=== PATIENT | male | born 1985 | race African-American/Black ===

== ENCOUNTER 2017-07-27 09:50 | Emergency (ER) | payer SELFPAY ==
[2017-07-27 09:56] VITALS: BP 120/69
[2017-07-27] MEDS ORDERED: MUPIROCIN 2% OINTMENT 22 GM TP ONE (10:26)
[2017-07-27] MEDS ORDERED: SULFAMETHOXAZOLE/TRIMETHOPRIM 800-160 MG TABLET PO ONE (10:26)
[2017-07-27] MEDS ORDERED: CEPHALEXIN 500 MG CAPSULE PO ONE (10:26)
--- NOTE | 2017-07-27 10:29 | ER Document Report ---
ED Skin Rash/Insect Bite/Abscs - General Chief Complaint: Boil Stated Complaint: LEG PAIN Time Seen by Provider: 07/27/17 10:18 Mode of Arrival: Ambulatory Information source: Patient Notes: 32-year-old male presents to ED for boil to his right thigh and a small ball to his left thigh. He states that he has been using minimal oral and which Azo and it is not gotten any better. He states is very painful. Is alert and oriented speaks in full sentences walks with a steady even gait. TRAVEL OUTSIDE OF THE [place] IN LAST 30 DAYS: No - HPI Patient complains to provider of: Tender/swollen area Onset: Last week Onset/Duration: Gradual Quality of pain: Pressure, Sharp Severity: Moderate Pain Level: 2 Skin Character: Abscess Identify cause: No Exacerbated by: Denies Relieved by: Denies Similar symptoms previously: Yes Recently seen / treated by doctor: No - Related Data Allergies/Adverse Reactions: No Known Allergies Allergy (Unverified 07/27/17 09:53) Past Medical History - General Information source: Patient - Social History Smoking Status: Never Smoker Cigarette use (# per day): No Chew tobacco use (# tins/day): No Smoking Education Provided: No Frequency of alcohol use: None Drug Abuse: None Lives with: Family Family History: Reviewed & Not Pertinent Patient has suicidal ideation: No Patient has homicidal ideation: No - Past Medical History Cardiac Medical History: Reports: None Pulmonary Medical History: Reports: None EENT Medical History: Reports: None Neurological Medical History: Reports: None Endocrine Medical History: Reports: None Renal/ Medical History: Reports: None Malignancy Medical History: Reports None GI Medical History: Reports: None Musculoskeltal Medical History: Reports None Skin Medical History: Reports Hx Cellulitis Psychiatric Medical History: Reports: None Traumatic Medical History: Reports: None Infectious Medical History: Reports: None Surgical Hx: Negative Past Surgical History: Reports: None Physical Exam - Vital signs Vitals: Temp Pulse Resp BP Pulse Ox 97.6 F 84 14 120/69 98 07/27/17 09:55 07/27/17 09:55 07/27/17 09:55 07/27/17 09:55 07/27/17 09:55 Interpretation: Normal - General General appearance: Appears well, Alert - HEENT Head: Normocephalic, Atraumatic Eyes: Normal Pupils: PERRL - Respiratory Respiratory status: No respiratory distress Chest status: Nontender Breath sounds: Normal Chest palpation: Normal - Cardiovascular Rhythm: Regular Heart sounds: Normal auscultation Murmur: No - Abdominal Inspection: Normal Distension: No distension Bowel sounds: Normal Tenderness: Nontender Organomegaly: No organomegaly - Back Back: Normal, Nontender - Extremities General upper extremity: Normal inspection, Nontender, Normal color, Normal ROM , Normal temperature General lower extremity: Normal ROM, Normal temperature, Normal weight bearing. No: Derrick's sign Thigh: Tender - Large abscess to right side smaller maculopapular to left thigh. - Neurological Neuro grossly intact: Yes Cognition: Normal Orientation: AAOx4 [place] Coma Scale Eye Opening: Spontaneous Chang Coma Scale Verbal: Oriented Chang Coma Scale Motor: Obeys Commands [place] Coma Scale Total: 15 Speech: Normal Motor strength normal: LUE, RUE, LLE, RLE Sensory: Normal - Psychological Associated symptoms: Normal affect, Normal mood - Skin Skin Temperature: Warm Skin Moisture: Dry Skin Color: Normal Skin irregularity: Abscess Location of irregularity: Extremities - Right thigh Course - Re-evaluation Re-evalutation: 07/27/17 21:08 Patient tolerated his I&D of his abscess to the thigh well. While I was doing the abscess he requested a check for diabetes be done while he was here. An Accu-Chek was completed and his Accu-Chek was 109. Patient states both his parents are diabetic and he was concerned. - Vital Signs Vital signs: Temp Pulse Resp BP Pulse Ox 97.6 F 84 14 120/69 98 07/27/17 09:55 07/27/17 09:55 07/27/17 09:55 07/27/17 09:55 07/27/17 09:55 Procedures - Incision and Drainage Right Thigh Time completed: 11:07 Type: Simple Anesthetic type: 1% Lidocaine mL's of anesthetic: 4 Blade size: 11 I&D procedure: Betadine prep applied, Shurclens applied, Sterile dressing applied Incision Method: Incision made by scalpel Amount/type of drainage: minimal purulent and bloody drainage Discharge - Discharge Clinical Impression: Abscess of right thigh Condition: Stable Disposition: HOME, SELF-CARE Instructions: Family Physicians / Practices Additional Instructions: ABSCESS: You have an abscess (boil). This a pus-forming infection, usually due to staph. Some boils may be left to drain on their own, but most require lancing. From the time the tender lump first appears, it may be three or four days before the abscess is ready to afshan. Local heat and rest help at this stage of treatment. An antibiotic may prevent spread of the infection. Once the abscess is opened, packing may be placed into it. This is done so pus is not sealed inside by premature closure of the cavity. The packing will be removed at your follow-up visit or you may be advised to remove it yourself at home. Sometimes this packing must be replaced a few times during healing. The wound will heal with surprisingly little scar. Depending on the size and location of an abscess, healing can take one to four weeks. You may shower and wash the area around the incision site two or three times a day. Antibiotics may be prescribed, but are usually not necessary after an abscess has been drained. If you develop fever, chills, worsening pain, or increasing swelling in the area, call the doctor or return immediately. POST INCISION AND DRAINAGE: You have had an incision made to allow drainage of an abscess. The incision must remain open so that pus and debris can drain from the wound. If the abscess cavity is large, packing is placed. This keeps the tissues from collapsing and trapping pus inside, while the body shrinks the cavity. The packing may need to be replaced every day or two. The physician will instruct you on the packing. Keep a bulky dressing over the area. Replace it if it becomes saturated with blood or pus. Do not disturb the packing (if present). You may shower and cleanse the area with gentle soap and warm water two or three times a day. Local warmth may be soothing, and may promote faster healing. Return if you develop high fever or chills, or if you note spreading redness, increasing swelling, or increasing tenderness. CEPHALEXIN: The antibiotic you've been prescribed is a member of the cephalosporin class. This type of antibiotic covers a wide variety of infections, including those of the skin, lungs, and urinary tract. It's useful for staph infections. This antibiotic is slightly similar to the penicillin family. In rare cases , a person who is allergic to penicillin will also be allergic to this medication. If you have had a severe allergic reaction to penicillin, and have not taken this antibiotic since that time, notify your doctor. Antibiotics which cover many germs ("broad spectrum" antibiotics) are more likely to cause diarrhea or "yeast" infections. Women prone to vaginal yeast problems may suffer an attack after taking this antibiotic. In infants, oral thrush (white spots "stuck" on the cheek) or yeast diaper rash may result. See your doctor if these problems occur. Call at once if you develop itching, hives , shortness of breath, or lightheadedness. Bactroban Ointment Bactroban is very effective against the germs that cause infection within the skin. It's useful for impetigo and other superficial infections. Deeper infections require antibiotics by mouth or by shot. Apply the medicine three times a day for one week, or longer if your doctor has advised it. Stop the medicine and call your doctor if you develop large blisters, severe itching, increasing pain, swelling, fever, or spreading redness. TRIMETHOPRIM-SULFA: You have been given a prescription for trimethoprim-sulfa (TMS, Septra, Bactrim). This is a combination antibiotic of the sulfa class, often used for urinary tract infections, middle ear infections, bronchitis, shigella intestinal infection, and Pneumocystis pneumonia. TMS is usually well-tolerated. Occasional side effects include nausea and decreased appetite. Septra is not recommended for infants less than two months of age. Do not take this medication if you have experienced severe side effects or allergy to sulfa medicine. You should stop this medicine at once and contact your physician if you develop any rash, joint pain, shortness of breath, bruising, or jaundice ( yellow color in the skin), or if you develop any other new or unusual symptoms. Epsom Salt Soaks Soak the wound area in a container of warm epsom salt water. If you can't get the wound area into a bucket or mason, use a folded towel soaked in the epsom salt solution and apply to the area. Use clean hot tap water (about the temperature of a very warm bath), mixing in about one (1) teaspoon for every pint of water. Two gallon --> 16 teaspoons Epsom Salts One gallon --> 8 teaspoons Epsom Salts Two quarts --> 4 teaspoons Epsom Salts One quart --> 2 teaspoons Epsom Salts Soak the wound for about 20 minutes while gently moving it around in the water. Repeat this four (4) times a day. FOLLOW-UP CARE: Most simple abscesses will not require a follow up visit. If you had packing placed in the abscess, remove it as instructed by the physician. If you have been referred to a physician for follow-up care, call the physicians office for an appointment as you were instructed or within the next two days. If you experience worsening or a significant change in your symptoms, return to the Emergency Department at any time for re-evaluation. Prescriptions: Cephalexin Monohydrate [Keflex 500 mg Capsule] 500 mg PO QID #20 capsule Sulfamethoxazole/Trimethoprim [Septra-Ds 800-160 mg Tablet] 1 tab PO BID #20 tablet Forms: Return to Work
== END 2017-07-27 11:33 | disposition home or self-care (01) ==
LOC: ER 09:50
DX: L02.415 Cutaneous abscess of right lower limb (principal); L02.416 Cutaneous abscess of left lower limb; Z83.3 Family history of diabetes mellitus
CPT/HCPCS: 99283; 87070; 87205; 82962; 87077; 87186; 10060; A6266; J3490

== ENCOUNTER 2017-07-29 08:11 | Emergency (ER) | payer SELFPAY ==
--- NOTE | 2017-07-29 09:38 | ER Document Report ---
ED Wound - General Chief Complaint: Wound Recheck Stated Complaint: POSSIBLE ABSCESS Time Seen by Provider: 07/29/17 08:27 Notes: Patient is a 32-year-old male who presents emergency department for a wound check after evaluation on Thursday. Patient states he had an abscess on his right thigh does I&D here. Denies any active drainage or tenderness. Admits to a couple of other inflamed areas on bilateral thighs. Denies any fevers or chills. Has been compliant with home antibiotics. Patient also admits to intermittent tingling in both hands and his toes without associated dizziness, vision changes. He states that it does feel positional and resolves on its own at rest.. He states this comes and goes over the past couple months. Patient requesting to follow-up with a primary care provider regarding that complaint of this visit.He denies any trauma, falls or fever. TRAVEL OUTSIDE OF THE [place] IN LAST 30 DAYS: No - Related Data Allergies/Adverse Reactions: No Known Allergies Allergy (Verified 07/29/17 08:59) Past Medical History - Social History Smoking Status: Unknown if Ever Smoked Chew tobacco use (# tins/day): No Frequency of alcohol use: None Drug Abuse: None Family History: Reviewed & Not Pertinent Patient has suicidal ideation: No Patient has homicidal ideation: No Renal/ Medical History: Denies: Hx Peritoneal Dialysis Skin Medical History: Reports Hx Cellulitis Review of Systems - Review of Systems Constitutional: No symptoms reported Cardiovascular: No symptoms reported Respiratory: No symptoms reported Gastrointestinal: No symptoms reported Musculoskeletal: See HPI Skin: See HPI Neurological/Psychological: See HPI -: Yes All other systems reviewed and negative Physical Exam - Vital signs Vitals: Temp Pulse Resp BP Pulse Ox 98.4 F 85 18 131/88 H 100 07/29/17 08:17 07/29/17 08:17 07/29/17 08:17 07/29/17 08:17 07/29/17 08:17 - Notes Notes: PHYSICAL EXAM GENERAL: Alert, interacts well. HEAD: Normocephalic, atraumatic. EYES: Pupils equal, round, and reactive to light. Extraocular movements intact. ENT: Oral mucosa moist, tongue midline. NECK: Full range of motion. Supple. Trachea midline. LUNGS: Clear to auscultation bilaterally, no wheezes, rales, or rhonchi. No respiratory distress. HEART: Regular rate and rhythm. No murmurs, gallops, or rubs. EXTREMITIES: Moves all 4 extremities spontaneously. No edema, radial and dorsalis pedis pulses 2/4 bilaterally. No cyanosis. NEUROLOGICAL: Alert and oriented x4. Normal speech. normal gait. 5 out of 5 strength in both the distal and proximal upper and lower extremities bilaterally. Sensation is grossly intact throughout. PSYCH: Normal affect, normal mood. SKIN: Warm, dry, normal turgor. Previous I&D site on the right anterior thigh with approximately 5 cm diameter of cellulitis. 2 areas of folliculitis on the right and left anterior thigh without any fluctuance, induration. Course - Re-evaluation Re-evalutation: 07/29/17 09:36 Patient is a 32-year-old male is hemodynamically stable, no acute distress and afebrile. Wound is healing well without any evidence of retained pus. No fluctuance. Patient educated on continuing the use of warm compresses and to follow-up with primary care - Vital Signs Vital signs: Temp Pulse Resp BP Pulse Ox 98.4 F 85 18 131/88 H 100 07/29/17 08:17 07/29/17 08:17 07/29/17 08:17 07/29/17 08:17 07/29/17 08:17 Discharge - Discharge Clinical Impression: Visit for wound check, Elevated blood pressure reading Condition: Good Disposition: HOME, SELF-CARE Instructions: Post Incision and Drainage Forms: Elevated Blood Pressure Referrals: YOBANY OSEGUERA MD [ACTIVE STAFF] - Follow up in 1 week
[2017-07-29 10:00] VITALS: BP 115/69
== END 2017-07-29 10:00 | disposition home or self-care (01) ==
LOC: ER 08:11
DX: L02.415 Cutaneous abscess of right lower limb (principal); R03.0 Elevated blood-pressure reading, without diagnosis of hypertension; R20.0 Anesthesia of skin
CPT/HCPCS: 99282